=== PATIENT | male | born 1980 | race Caucasian/White ===

== ENCOUNTER 2022-12-31 14:46 | Emergency (ER) | payer SELFPAY ==
[~2022-12-31] VITALS: Ht 165.1 cm; Wt 64.0 kg
[2022-12-31 14:59] VITALS: BP 122/77; PULSE 99; RESP 18; TEMP 97.4; O2SAT 96
[2022-12-31 15:40] LABS: BASOPHILS % 1.4 % (0.0-2.0); HEMATOCRIT. 31.2 % (42.0-52.0); HEMOGLOBIN. 10.3 g/dL (14.0-18.0); LYMPHOCYTES % 9.2 % (20.0-50.0); MEAN CORPUSCULAR HEMOGLOBIN 27.2 pg (28.0-32.0); MEAN CORPUSCULAR VOLUME 82.2 fL (80.0-94.0); MONOCYTES % 14.7 % (2.0-8.0); NEUTROPHILS % 71.7 % (40.0-76.0); PLATELET 198 x1000/uL (130-400); WHITE BLOOD COUNT 5.4 x1000/uL (4.5-11.0)
[2022-12-31 15:59] LABS: CHLORIDE 102 mEq/L (98-107); INDEX HEMOLYSI 1 (1-3); INDEX ICTERIC 1 (1-4); INDEX LIPEMIC 1 (1-3); POTASSIUM 3.3 mEq/L (3.5-5.1); SODIUM 136 mEq/L (136-145)
[2022-12-31 16:05] LABS: INDEX HEMOLYSI 1 (1-3)
[2022-12-31 16:09] LABS: ALANINE AMINOTRANSFERASE 57 IU/L (13-61); ALBUMIN 3.1 g/dL (3.4-5.0); ASPARTATE AMINOTRANSFERASE 66 IU/L (15-37); BILIRUBIN TOTAL 0.4 mg/dL (0.1-1.0); CALCIUM 8.9 mg/dL (8.5-10.1); CARBON DIOXIDE 24 mEq/L (21-32); CREATINE KINASE 66 IU/L (39-308); CREATININE 0.5 mg/dL (0.6-1.3); ETHANOL BLOOD 15 mg/dL (<10); GLUCOSE 112 mg/dL (70-105); PROTEIN TOTAL 7.7 g/dL (6.0-8.3); UREA NITROGEN BLOOD 6 mg/dL (7-21)
[2022-12-31 16:11] LABS: AMMONIA 41 uMol/L (<32)
[2022-12-31] MEDS ORDERED: CHLORDIAZEPOXIDE 25MG CAPSULE PO ONE (17:00)
== END 2022-12-31 19:29 | disposition home or self-care (01) ==
LOC: ER 15:10
DX: F10.239 Alcohol dependence with withdrawal, unspecified (principal); Z88.0 Allergy status to penicillin; Y90.1 Blood alcohol level of 20-39 mg/100 ml
CPT/HCPCS: 36415; 80053; 80320; 82140; 82550; 85025; 93005; 99284; G0480